=== PATIENT | male | born 1980 | race Caucasian/White ===

== ENCOUNTER 2019-01-07 23:17 | Emergency (ER) | payer OTHER ==
[2019-01-08] MEDS: DIPHTH/TET/ACEL PERTUSS (ADULT) 0.5 ML VIAL IM* (01:35)
[2019-01-08] MEDS: IBUPROFEN 600 MG TAB PO (04:46)
== END 2019-01-08 04:58 | disposition home or self-care (01) ==
LOC: FTE 23:17
DX: M25.522 Pain in left elbow (principal); Z23 Encounter for immunization
CPT/HCPCS: 73080; 73080-LT; 90471; 90715; 99283-25